=== PATIENT | female | born 2000 ===

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

== ENCOUNTER 2022-10-17 17:23 | Outpatient (CLI) | payer OTHER | END 2022-10-17 17:24 | disposition left against medical advice (07) | LOC: EMS 17:23 | DX: R55 Syncope and collapse (principal) ==